=== PATIENT | male | born 1990 | race American Indian/Alaskan Native ===

== ENCOUNTER 2019-01-03 17:59 | Emergency (ER) | payer SELFPAY ==
--- NOTE | 2019-01-03 18:44 | Emergency Department Report ---
ED General Adult HPI - General Chief complaint: Overdose Stated complaint: ILLNESS Time Seen by Provider: 01/03/19 18:35 Source: patient, EMS Mode of arrival: Ambulatory Limitations: No Limitations - History of Present Illness Initial comments: 28 y.o. male with history of schizophrenia presents after stating that he ingested an unknown amount of Nyquil to go to sleep after using cocaine prior for the past couple of days. Patient states that he only wanted to go to sleep and denies SI. Patient denies HI or auditory hallucinations. Patient states that he had no other coingestants such as tylenol or salicylates. Patient denies chest pain or shortness of breath. - Related Data Allergies Allergy/AdvReac Type Severity Reaction Status Date / Time No Known Allergies Allergy Verified 01/03/19 18:18 ED Review of Systems ROS: Stated complaint: ILLNESS Other details as noted in HPI Constitutional: denies: chills, fever Eyes: denies: eye pain, eye discharge, vision change ENT: denies: ear pain, throat pain Respiratory: denies: cough, shortness of breath, wheezing Cardiovascular: denies: chest pain, palpitations Endocrine: no symptoms reported Gastrointestinal: denies: abdominal pain, nausea, diarrhea Genitourinary: denies: urgency, dysuria Musculoskeletal: denies: back pain, joint swelling, arthralgia Skin: denies: rash, lesions Neurological: denies: headache, weakness, paresthesias Psychiatric: denies: anxiety, depression Hematological/Lymphatic: denies: easy bleeding, easy bruising ED Past Medical Hx - Past Medical History Previous Medical History?: Yes Hx Psychiatric Treatment: Yes (aris) ED Physical Exam - General Limitations: No Limitations General appearance: alert, in no apparent distress - Head Head exam: Present: atraumatic, normocephalic - Eye Eye exam: Present: normal appearance - ENT ENT exam: Present: mucous membranes moist - Neck Neck exam: Present: normal inspection - Respiratory Respiratory exam: Present: normal lung sounds bilaterally. Absent: respiratory distress - Cardiovascular Cardiovascular Exam: Present: normal rhythm, tachycardia. Absent: systolic murmur, diastolic murmur, rubs, gallop - GI/Abdominal GI/Abdominal exam: Present: soft, normal bowel sounds - Rectal Rectal exam: Present: deferred - Extremities Exam Extremities exam: Present: normal inspection - Back Exam Back exam: Present: normal inspection - Neurological Exam Neurological exam: Present: alert, oriented X3 - Psychiatric Psychiatric exam: Present: anxious, flat affect. Absent: homicidal ideation, suicidal ideation - Skin Skin exam: Present: warm, dry, intact, normal color. Absent: rash ED Course Vital Signs 01/03/19 01/03/19 18:49 21:22 Pulse Rate 91 H Respiratory 18 16 Rate Blood Pressure 137/85 [Right] O2 Sat by Pulse 98 98 Oximetry ED Medical Decision Making - Lab Data Result diagrams: 01/03/19 18:58 01/03/19 21:28 - EKG Data EKG shows normal: sinus rhythm Rate: tachycardia - EKG Data When compared to previous EKG there are: no significant change - Medical Decision Making Case discussed with poison control who states to repeat tylenol level in four hours. Patient to receive NS bolus of IV fluids. Patient seen by [facility] and does not meet inpatient criteria. Patient to be discharged to follow-up with outpatient psychiatry as he does have follow-up with he receives his Invega shot. Patient HR has improved s/p receiving IV fluids. Patient currently pending a repeat tylenol level. - Differential Diagnosis rhabdomyolysis; dehydration; anemia; psychosis; Critical care attestation.: If time is entered above; I have spent that time in minutes in the direct care of this critically ill patient, excluding procedure time. ED Disposition Clinical Impression: Drug overdose, intentional, Cocaine abuse Disposition: DC-01 TO HOME OR SELFCARE Is pt being admited?: No Does the pt Need Aspirin: No Condition: Stable Instructions: Cocaine Abuse (ED) Time of Disposition: 20:34 Print Language: MALAY
[2019-01-03] MEDS ORDERED: NACL 0.9% 1000 ML 1,000 ML IV ONE (18:45)
[2019-01-03 19:17] LABS: Basophils % (Auto) 0.7 % (0.0-1.8); Eosinophils % (Auto) 0.7 % (0.0-4.3); Hematocrit 43.5 % (35.5-45.6); Hemoglobin 14.7 gm/dl (11.8-15.2); Lymphocytes # (Auto) 0.8 K/mm3 (1.2-5.4); Lymphocytes % (Auto) 14.2 % (13.4-35.0); Mean Corpuscular HGB Conc 34 % (32-34); Mean Corpuscular Volume 87 fl (84-94); Monocytes # (Auto) 0.4 K/mm3 (0.0-0.8); Monocytes % (Auto) 7.2 % (0.0-7.3); Platelet Count 261 K/mm3 (140-440); Red Blood Count 5.02 M/mm3 (3.65-5.03); Red Cell Distribution Width 14.3 % (13.2-15.2)
[2019-01-03 21:25] VITALS: BP 137/85
[2019-01-03 21:42] LABS: Alanine Aminotransferase 17 units/L (7-56); BUN/Creatinine Ratio 9; Blood Urea Nitrogen 8 mg/dL (9-20); Calcium 9.5 mg/dL (8.4-10.2); Hemolysis Index 32
[2019-01-03 21:58] LABS: Amphetamine Screen,Urine PRESUMPTIVE NEGATIVE; Benzodiazepines Screen,Urine PRESUMPTIVE NEGATIVE; Cannabinoid Screen,Urine PRESUMPTIVE NEGATIVE; Cocaine Screen,Urine PRESUMPTIVE NEGATIVE; Methadone Screen,Urine PRESUMPTIVE NEGATIVE; Opiate Screen,Urine PRESUMPTIVE NEGATIVE
== END 2019-01-03 23:00 | disposition home or self-care (01) ==
LOC: EDSEX → ED 17:59
DX: T40.5X2A Poisoning by cocaine, intentional self-harm, initial encounter (principal); F20.9 Schizophrenia, unspecified; Y92.89 Other specified places as the place of occurrence of the external cause
CPT/HCPCS: 36415; 80053; 80307; 82550; 84484; 85025; 93005; 93010; 99284; J7030; 80320; G0480

== ENCOUNTER 2019-01-10 12:56 | Emergency (ER) | payer MEDICAID ==
[2019-01-10] MEDS ORDERED: ASPIRIN PO ONE (13:14)
--- NOTE | 2019-01-10 13:21 | Event Note ---
ED Screening Note Date of service: 01/10/19 Time: 13:14 ED Screening Note: Patient here c/o cp left side of chest and feels like pressure. Ongoing for 1 hour. Took cocaine 2 days. Uses once every 2 weeks. Drinks 1 pint gin every other day. HX of HTN, increase chol and SCHIZOPhrenic. Denies visual or auditory hallucination. No suicide ideation. Seen by [facility] and on Meds. Came via ambulance and was here last week for similar problems but no follow up Mild TTP left chest Lungs Clear VSS, afeb This initial assessment/diagnostic orders/clinical plan/treatment(s) is/are subject to change based on patients health status, clinical progression and re- assessment by fellow clinical providers in the ED. Further treatment and workup at subsequent clinical providers discretion. Patient/guardian urged not to elope from the ED as their condition may be serious if not clinically assessed and managed. Initial orders include: CP protocol
[2019-01-10 13:53] LABS: Basophils % (Auto) 0.7 % (0.0-1.8); Eosinophils % (Auto) 0.6 % (0.0-4.3); Hematocrit 40.8 % (35.5-45.6); Hemoglobin 13.8 gm/dl (11.8-15.2); Lymphocytes # (Auto) 0.9 K/mm3 (1.2-5.4); Lymphocytes % (Auto) 16.5 % (13.4-35.0); Mean Corpuscular HGB Conc 34 % (32-34); Mean Corpuscular Volume 87 fl (84-94); Monocytes # (Auto) 0.5 K/mm3 (0.0-0.8); Monocytes % (Auto) 9.2 % (0.0-7.3); Platelet Count 290 K/mm3 (140-440); Red Blood Count 4.71 M/mm3 (3.65-5.03); Red Cell Distribution Width 14.4 % (13.2-15.2)
[2019-01-10 14:04] LABS: INR 0.9 (0.87-1.13); Partial Thromboplastin Time 25.4 Sec. (24.2-36.6)
[2019-01-10 14:08] LABS: Alanine Aminotransferase 13 units/L (7-56); BUN/Creatinine Ratio 10; Blood Urea Nitrogen 10 mg/dL (9-20); Calcium 9.9 mg/dL (8.4-10.2); Hemolysis Index 6
--- NOTE | 2019-01-10 14:09 | XRay Report ---
CHEST 2 VIEWS INDICATION: Chest Pain. Acute generalized chest pain COMPARISON: None FINDINGS: Support devices: None. Heart: Within normal limits. Lungs/pleura: No acute air space or interstitial disease. No pneumothorax. Additional findings: None. IMPRESSION: 1. No acute findings. Signer Name: Benigno Buck MD Signed: 01/10/2019 2:05 PM Workstation Name: [id number]
--- NOTE | 2019-01-10 14:13 | Emergency Department Report ---
<DAT DAMON - Last Filed: 01/10/19 17:16> ED Chest Pain HPI - General Chief Complaint: Chest Pain Stated Complaint: CHEST PAIN Time Seen by Provider: 01/10/19 13:12 Source: patient, EMS Mode of arrival: Ambulatory Limitations: No Limitations - History of Present Illness Initial Comments: 28-year-old -Dutch male patient with history of schizophrenia and hyperlipidemia presents today with complaints of chest pain prior to arrival. Denies any current pain. States the pain was left-sided and felt like a pressure. He states he feels anxious and the pressure in his chest feels like his normal anxiety. He does report history of anxiety attacks. He denies any recent heavy lifting or trauma to his chest, leg pain or swelling, recent long travel, shortness of breath, or history of SC/CVA/DVT/PE. He denies any family history of heart disease. He states compliance with his in [place] and fluoxetine MD Complaint: chest pain -: Sudden, minutes(s) Onset: during rest Pain Location: left chest Pain Radiation: none Severity scale (0 -10): 4 Quality: pressure Consistency: constant Worsens With: nothing Other Symptoms: denies: cough, syncope, leg swelling, palpitations - Related Data Allergies Allergy/AdvReac Type Severity Reaction Status Date / Time No Known Allergies Allergy Verified 01/03/19 18:18 Heart Score - HEART Score History: Slightly suspicious EKG: Normal Age: < 45 Risk factors: 1-2 risk factors Troponin: < normal limit HEART Score: 1 - Critical Actions Critical Actions: 0-3 pts:0.9-1.7%risk of adverse cardiac event.Candidate for discharge ED Past Medical Hx - Past Medical History Previous Medical History?: Yes Hx Hypertension: Yes Hx Psychiatric Treatment: Yes (aris) Additional medical history: Drug use - Surgical History Past Surgical History?: No - Social History Smoking Status: Current Every Day Smoker Substance Use Type: Alcohol, Cocaine, Marijuana, Other ED Physical Exam - General Limitations: No Limitations ED Medical Decision Making - Lab Data Result diagrams: 01/10/19 13:23 01/10/19 13:23 Lab Results 01/10/19 01/10/19 01/10/19 Range/Units 13:23 13:23 13:23 WBC 5.2 (4.5-11.0) K/mm3 RBC 4.71 (3.65-5.03) M/mm3 Hgb 13.8 (11.8-15.2) gm/dl Hct 40.8 (35.5-45.6) % MCV 87 (84-94) fl MCH 29 (28-32) pg MCHC 34 (32-34) % RDW 14.4 (13.2-15.2) % Plt Count 290 (140-440) K/mm3 Lymph % (Auto) 16.5 (13.4-35.0) % Day % (Auto) 9.2 H (0.0-7.3) % Eos % (Auto) 0.6 (0.0-4.3) % Baso % (Auto) 0.7 (0.0-1.8) % Lymph # 0.9 L (1.2-5.4) K/mm3 Day # 0.5 (0.0-0.8) K/mm3 Eos # 0.0 (0.0-0.4) K/mm3 Baso # 0.0 (0.0-0.1) K/mm3 Seg Neutrophils % 73.0 H (40.0-70.0) % Seg Neutrophils # 3.8 (1.8-7.7) K/mm3 PT 12.1 L (12.2-14.9) Sec. INR 0.90 (0.87-1.13) APTT 25.4 (24.2-36.6) Sec. Sodium 141 (137-145) mmol/L Potassium 4.8 (3.6-5.0) mmol/L Chloride 99.5 (98-107) mmol/L Carbon Dioxide 26 (22-30) mmol/L Anion Gap 20 mmol/L BUN 10 (9-20) mg/dL Creatinine 1.0 (0.8-1.5) mg/dL Estimated GFR > 60 ml/min BUN/Creatinine Ratio 10 % Glucose 91 (75-100) mg/dL Calcium 9.9 (8.4-10.2) mg/dL Total Bilirubin 0.40 (0.1-1.2) mg/dL AST 24 (5-40) units/L ALT 13 (7-56) units/L Alkaline Phosphatase 106 (35-129) units/L Total Creatine Kinase (55-170) units/L Troponin T < 0.010 (0.00-0.029) ng/mL Total Protein 8.3 H (6.3-8.2) g/dL Albumin 5.0 (3.9-5) g/dL Albumin/Globulin Ratio 1.5 % Urine Opiates Screen Urine Methadone Screen Ur Barbiturates Screen Ur Phencyclidine Scrn Ur Amphetamines Screen U Benzodiazepines Scrn Urine Cocaine Screen U Marijuana (THC) Screen Drugs of Abuse Note 01/10/19 01/10/19 Range/Units 13:23 13:34 WBC (4.5-11.0) K/mm3 RBC (3.65-5.03) M/mm3 Hgb (11.8-15.2) gm/dl Hct (35.5-45.6) % MCV (84-94) fl MCH (28-32) pg MCHC (32-34) % RDW (13.2-15.2) % Plt Count (140-440) K/mm3 Lymph % (Auto) (13.4-35.0) % Day % (Auto) (0.0-7.3) % Eos % (Auto) (0.0-4.3) % Baso % (Auto) (0.0-1.8) % Lymph # (1.2-5.4) K/mm3 Day # (0.0-0.8) K/mm3 Eos # (0.0-0.4) K/mm3 Baso # (0.0-0.1) K/mm3 Seg Neutrophils % (40.0-70.0) % Seg Neutrophils # (1.8-7.7) K/mm3 PT (12.2-14.9) Sec. INR (0.87-1.13) APTT (24.2-36.6) Sec. Sodium (137-145) mmol/L Potassium (3.6-5.0) mmol/L Chloride (98-107) mmol/L Carbon Dioxide (22-30) mmol/L Anion Gap mmol/L BUN (9-20) mg/dL Creatinine (0.8-1.5) mg/dL Estimated GFR ml/min BUN/Creatinine Ratio % Glucose (75-100) mg/dL Calcium (8.4-10.2) mg/dL Total Bilirubin (0.1-1.2) mg/dL AST (5-40) units/L ALT (7-56) units/L Alkaline Phosphatase (35-129) units/L Total Creatine Kinase 349 H (55-170) units/L Troponin T (0.00-0.029) ng/mL Total Protein (6.3-8.2) g/dL Albumin (3.9-5) g/dL Albumin/Globulin Ratio % Urine Opiates Screen Presumptive negative Urine Methadone Screen Presumptive negative Ur Barbiturates Screen Presumptive negative Ur Phencyclidine Scrn Presumptive negative Ur Amphetamines Screen Presumptive negative U Benzodiazepines Scrn Presumptive negative Urine Cocaine Screen Presumptive positive U Marijuana (THC) Screen Presumptive negative Drugs of Abuse Note Disclamer - EKG Data When compared to previous EKG there are: no significant change - Radiology Data Radiology results: report reviewed CHEST 2 VIEWS INDICATION: Chest Pain. Acute generalized chest pain COMPARISON: None FINDINGS: Support devices: None. Heart: Within normal limits. Lungs/pleura: No acute air space or interstitial disease. No pneumothorax. Additional findings: None. IMPRESSION: 1. No acute findings. - Medical Decision Making 28-year-old patient here with complaints of chest pain today. No current chest pain. No history of DVT/PE/SC/CVA. Patient states this feels like his normal anxiety. Perc score = 0. Heart score = 1. No acute findings on labs or chest x-ray today. Vitals WNL. Patient seen here 5 days ago for the same. Recommend follow-up with cardiology for further evaluation. Precautions were discussed in detail with patient who states understanding. ED Disposition Clinical Impression: Other chest pain Disposition: DC-01 TO HOME OR SELFCARE Is pt being admited?: No Condition: Stable Instructions: Chest Pain (ED) Referrals: NEREIDA ZULETA MD [Staff Physician] - 3-5 Days <SHIRA DEL CID P - Last Filed: 01/11/19 22:55> ED Review of Systems ROS: Stated complaint: CHEST PAIN Other details as noted in HPI ED Course Vital Signs 01/10/19 01/10/19 01/10/19 13:04 14:08 16:15 Temperature 98.1 F Pulse Rate 99 H 98 H 84 Respiratory 18 14 17 Rate Blood Pressure 131/81 Blood Pressure 114/68 107/60 [Left] O2 Sat by Pulse 98 98 99 Oximetry ED Medical Decision Making - Lab Data Result diagrams: 01/10/19 13:23 01/10/19 13:23 - Medical Decision Making Attestation: Available for consultation Critical care attestation.: If time is entered above; I have spent that time in minutes in the direct care of this critically ill patient, excluding procedure time. ED Disposition Is pt being admited?: No
[2019-01-10 14:31] LABS: Amphetamine Screen,Urine PRESUMPTIVE NEGATIVE; Benzodiazepines Screen,Urine PRESUMPTIVE NEGATIVE; Cannabinoid Screen,Urine PRESUMPTIVE NEGATIVE; Methadone Screen,Urine PRESUMPTIVE NEGATIVE; Opiate Screen,Urine PRESUMPTIVE NEGATIVE
[2019-01-10 14:48] LABS: Cocaine Screen,Urine PRESUMPTIVE POSITIVE
[2019-01-10] MEDS ORDERED: NACL 0.9% 1000 ML 1,000 ML IV ONE (15:37)
[2019-01-10 16:16] VITALS: BP 107/60
== END 2019-01-10 17:37 | disposition home or self-care (01) ==
LOC: ED 12:56
DX: R07.89 Other chest pain (principal); I10 Essential (primary) hypertension; F20.9 Schizophrenia, unspecified; F17.200 Nicotine dependence, unspecified, uncomplicated; F12.10 Cannabis abuse, uncomplicated
CPT/HCPCS: 36415; 71046; 80053; 80307; 82550; 84484; 85025; 85610; 85730; 93005; 93010; 99284; J7030

== ENCOUNTER 2019-02-08 10:51 | Emergency (ER) | payer MEDICAID ==
--- NOTE | 2019-02-08 12:03 | XRay Report ---
CHEST 1 VIEW 02/08/2019 11:35 AM INDICATION / CLINICAL INFORMATION: Chest Pain. Left upper chest wall pain. Anxiety. COMPARISON: 2 views of the chest from 01/10/2019. FINDINGS: SUPPORT DEVICES: None. HEART / MEDIASTINUM: No significant abnormality. LUNGS / PLEURA: There is mild biapical scarring. The lungs are otherwise clear. No significant pleura l effusion. No pneumothorax. ADDITIONAL FINDINGS: No significant additional findings. IMPRESSION: 1. No acute abnormality of the chest. Signer Name: Rogelio Chacon MD Signed: 02/08/2019 11:58 AM Workstation Name: [id number]
[2019-02-08 12:47] LABS: Hematocrit 39.7 % (35.5-45.6); Hemoglobin 13.2 gm/dl (11.8-15.2); Mean Corpuscular HGB Conc 33 % (32-34); Mean Corpuscular Volume 87 fl (84-94); Platelet Count 204 K/mm3 (140-440); Red Blood Count 4.57 M/mm3 (3.65-5.03); Red Cell Distribution Width 14.5 % (13.2-15.2)
--- NOTE | 2019-02-08 13:08 | Emergency Department Report ---
ED Chest Pain HPI - General Chief Complaint: Chest Pain Stated Complaint: CHEST PAIN Time Seen by Provider: 02/08/19 13:05 Source: patient Mode of arrival: Ambulatory Limitations: No Limitations - History of Present Illness Initial Comments: 28-year-old -Polish male with a past medical history of schizophrenia, hypertension, cholesterolemia presents to the emergency room for upper chest wall pain, anxiety and facial swelling the left hand tightness. Patient denies any shortness of breath or difficulty swallowing. It was noted the patient was here on 1026 for chest pain referred to dental appliance repairer and had a stress test on 1121 within normal limits. It was reviewed the patient has a history of cocaine abuse but states he has been in rehabilitation for the last 2 weeks and currently has been out. Patient reports that his chest pain has been on and off since December. Patient states when he has chest pain he feels very anxious and nervous. Patient states he started taking an aspirin daily but does not seem to help with this pain. Patient reports is currently taking Zoloft for his anxiety hypertensive medication and a cholesterol medication. Patient denies any pain at this moment. MD Complaint: chest pain -: This afternoon Onset: during rest Pain Location: left chest (upper) Pain Radiation: none Severity scale (0 -10): 5 Quality: sharp Consistency: intermittent Improves With: nothing Worsens With: nothing re: denies: nausea, vomting, diaphoresis, dyspnea, sense of impending doom Other Symptoms: denies: cough, fever, syncope, rash, acid taste in mouth, leg swelling, palpitations, burping Treatments Prior to Arrival: none - Related Data Allergies Allergy/AdvReac Type Severity Reaction Status Date / Time No Known Allergies Allergy Verified 01/03/19 18:18 Heart Score - HEART Score History: Slightly suspicious EKG: Normal Age: < 45 Risk factors: 1-2 risk factors Troponin: 1-3x normal limit HEART Score: 2 ED Review of Systems ROS: Stated complaint: CHEST PAIN Other details as noted in HPI Comment: All other systems reviewed and negative ED Past Medical Hx - Past Medical History Hx Hypertension: Yes Hx Psychiatric Treatment: Yes (aris) Additional medical history: Drug use - Social History Smoking Status: Current Every Day Smoker Substance Use Type: Alcohol ED Physical Exam - General Limitations: No Limitations General appearance: alert, in no apparent distress - Head Head exam: Present: atraumatic, normocephalic - Eye Eye exam: Present: normal appearance - ENT ENT exam: Present: mucous membranes moist - Neck Neck exam: Present: normal inspection - Respiratory Respiratory exam: Present: normal lung sounds bilaterally. Absent: respiratory distress - Cardiovascular Cardiovascular Exam: Present: regular rate, normal rhythm. Absent: systolic murmur, diastolic murmur, rubs, gallop - GI/Abdominal GI/Abdominal exam: Present: soft, normal bowel sounds - Rectal Rectal exam: Present: deferred - Extremities Exam Extremities exam: Present: normal inspection - Back Exam Back exam: Present: normal inspection - Neurological Exam Neurological exam: Present: alert, oriented X3 - Psychiatric Psychiatric exam: Present: normal affect, normal mood - Skin Skin exam: Present: warm, dry, intact, normal color. Absent: rash ED Course Vital Signs 02/08/19 02/08/19 11:01 15:17 Temperature 98.2 F 97.9 F Pulse Rate 103 H 80 Respiratory 18 18 Rate Blood Pressure 166/88 Blood Pressure 138/87 [Right] O2 Sat by Pulse 100 99 Oximetry CRISTÓBAL score - Cristóbal Score Age > 65: (0) No Aspirin use within the Past 7 Days: (1) Yes 3 or more CAD Risk Factors: (0) No 2 or more Angina events in past 24 hrs: (0) No Known CAD with more than 50% Stenosis: (0) No Elevated Cardiac Markers: (0) No ST Deviation Greater than 0.5mm: (0) No CRISTÓBAL Score: 1 ED Medical Decision Making - Lab Data Result diagrams: 02/08/19 12:19 02/08/19 14:08 - Radiology Data Radiology results: report reviewed Patient: THOMPSON BALDWIN MR#: [id number] 21 : 1990 Acct:[id number] Age/Sex: 28 / M ADM Date: 02/08/19 Loc: ED Attending Dr: Ordering Physician: SALVATORE FLOWER MD Date of Service: 02/08/19 Procedure(s): XR chest 1V ap Accession Number(s): [id number] cc: ED MD MUNDO Fluoro Time In Minutes: CHEST 1 VIEW 02/08/2019 11:35 AM INDICATION / CLINICAL INFORMATION: Chest Pain. Left upper chest wall pain. Anxiety. COMPARISON: 2 views of the chest from 01/10/2019. FINDINGS: SUPPORT DEVICES: None. HEART / MEDIASTINUM: No significant abnormality. LUNGS / PLEURA: There is mild biapical scarring. The lungs are otherwise clear. No significant pleural effusion. No pneumothorax. ADDITIONAL FINDINGS: No significant additional findings. IMPRESSION: 1. No acute abnormality of the chest. Signer Name: Rogelio Chacon MD Signed: 02/08/2019 11:58 AM Workstation Name: [id number] Transcribed By: [place] Dictated By: Rogelio Chcaon MD Electronically Authenticated By: Rogelio Chacon MD Signed Date/Time: 02/08/191157 DD/ 57 TD/TT: - Medical Decision Making 28-year-old -Polish male with a past medical history of schizophrenia, hypertension, cholesterolemia presents to the emergency room for upper chest wall pain, anxiety and facial swelling the left hand tightness. Patient denies any shortness of breath or difficulty swallowing. It was noted the patient was here on 1026 for chest pain referred to dental appliance repairer and had a stress test on 1120 within normal limits. It was reviewed the patient has a history of cocaine abuse but states he has been in rehabilitation for the last 2 weeks and currently has been out. Patient reports that his chest pain has been on and off since December. Patient states when he has chest pain he feels very anxious and nervous. Patient states he started taking an aspirin daily but does not seem to help with this pain. Patient reports is currently taking Zoloft for his anxiety hypertensive medication and a cholesterol medication. Patient denies any pain at this moment. Patient has a heart score of 2, and a CRISTÓBAL score of 0. Patient's had a recent stress test in 1120 within normal limits. Patient has 2 negative troponins. Patient does test positive for barbiturates. Patient's encouraged to continue with his anxiety medication and to follow up with his primary care provider and dental appliance repairer. Critical care attestation.: If time is entered above; I have spent that time in minutes in the direct care of this critically ill patient, excluding procedure time. ED Disposition Clinical Impression: Atypical chest pain, Barbiturate abuse Disposition: DC-01 TO HOME OR SELFCARE Is pt being admited?: No Does the pt Need Aspirin: No Condition: Stable Instructions: Chest Pain (ED) Referrals: [facility] [Outside] - 3-5 Days
[2019-02-08 13:54] LABS: Amphetamine Screen,Urine PRESUMPTIVE NEGATIVE; Benzodiazepines Screen,Urine PRESUMPTIVE NEGATIVE; Cannabinoid Screen,Urine PRESUMPTIVE NEGATIVE; Cocaine Screen,Urine PRESUMPTIVE NEGATIVE; Methadone Screen,Urine PRESUMPTIVE NEGATIVE; Opiate Screen,Urine PRESUMPTIVE NEGATIVE
[2019-02-08 14:29] LABS: Alanine Aminotransferase 18 units/L (7-56); Albumin 4.7 g/dL (3.9-5); BUN/Creatinine Ratio 11; Blood Urea Nitrogen 8 mg/dL (9-20); Calcium 9.7 mg/dL (8.4-10.2); Hemolysis Index 3
[2019-02-08 14:37] LABS: Alanine Aminotransferase 17 units/L (7-56); Albumin 4.3 g/dL (3.9-5); BUN/Creatinine Ratio 12; Blood Urea Nitrogen 7 mg/dL (9-20); Calcium 9.4 mg/dL (8.4-10.2); Hemolysis Index 5
[2019-02-08 15:18] VITALS: BP 138/87
== END 2019-02-08 15:30 | disposition home or self-care (01) ==
LOC: ED 10:51
DX: F07.89 Other personality and behavioral disorders due to known physiological condition (principal); F13.10 Sedative, hypnotic or anxiolytic abuse, uncomplicated; I10 Essential (primary) hypertension; F20.0 Paranoid schizophrenia; F17.200 Nicotine dependence, unspecified, uncomplicated
CPT/HCPCS: 36415; 71045; 80053; 80307; 84484; 85027; 93005; 93010

== ENCOUNTER 2019-04-23 23:57 | Emergency (ER) | payer MEDICAID ==
[2019-04-24 00:34] LABS: Basophils % (Auto) 0.5 % (0.0-1.8); Eosinophils # (Auto) 0.1 K/mm3 (0.0-0.4); Eosinophils % (Auto) 2.3 % (0.0-4.3); Hemoglobin 11.7 gm/dl (11.8-15.2); Lymphocytes # (Auto) 1.6 K/mm3 (1.2-5.4); Lymphocytes % (Auto) 34.3 % (13.4-35.0); Mean Corpuscular HGB Conc 33 % (32-34); Mean Corpuscular Volume 88 fl (84-94); Monocytes # (Auto) 0.3 K/mm3 (0.0-0.8); Monocytes % (Auto) 7.3 % (0.0-7.3); Platelet Count 212 K/mm3 (140-440); Red Cell Distribution Width 14.5 % (13.2-15.2)
[2019-04-24 00:54] LABS: BUN/Creatinine Ratio 13; Blood Urea Nitrogen 10 mg/dL (9-20); Hemolysis Index 3
--- NOTE | 2019-04-24 01:22 | Emergency Department Report ---
- General Chief complaint: Weakness Stated complaint: WEAKNESS Time Seen by Provider: 04/24/19 01:11 Source: patient, EMS Mode of arrival: Ambulatory Limitations: No Limitations - History of Present Illness Initial comments: Mr. Jones is a 29-year-old male history of hypertension and schizophrenia who presents with generalized weakness for 2 weeks. He is tried to treat this weakness with a vitamin [id number]. He denies any recent drug use because he is "scared" to use drugs. He denies any pain. He is followed at [facility]. He has been compliant with all his medications. MD Complaint: generalized weakness -: Gradual, week(s) (2) Location: generalized Severity: mild Consistency: constant Improves with: none Worsens with: none Associated Symptoms: denies other symptoms - Related Data Previous Rx's Medication Instructions Recorded Last Taken Type Multivitamin [One Daily 1 each PO DAILY 90 Days #90 tablet 04/24/19 Unknown Rx Multivitamin] Allergies Allergy/AdvReac Type Severity Reaction Status Date / Time No Known Allergies Allergy Verified 01/03/19 18:18 ED Review of Systems ROS: Stated complaint: WEAKNESS Other details as noted in HPI Comment: All other systems reviewed and negative Constitutional: malaise. denies: chills, fever Respiratory: denies: cough Cardiovascular: denies: chest pain, palpitations Gastrointestinal: denies: abdominal pain, nausea, vomiting ED Past Medical Hx - Past Medical History Previous Medical History?: Yes Hx Hypertension: Yes Hx Psychiatric Treatment: Yes (mollyernia) Additional medical history: Drug use - Surgical History Past Surgical History?: No - Social History Smoking Status: Current Every Day Smoker Substance Use Type: None - Medications Home Medications: Home Medications Medication Instructions Recorded Confirmed Last Taken Type Multivitamin [One Daily 1 each PO DAILY 90 Days #90 tablet 04/24/19 Unknown Rx Multivitamin] ED Physical Exam - General Limitations: No Limitations General appearance: alert, in no apparent distress - Head Head exam: Present: atraumatic, normocephalic - Eye Eye exam: Present: normal appearance - ENT ENT exam: Present: mucous membranes moist - Neck Neck exam: Present: normal inspection, full ROM - Respiratory Respiratory exam: Present: normal lung sounds bilaterally. Absent: respiratory distress, wheezes, rales, rhonchi - Cardiovascular Cardiovascular Exam: Present: regular rate, normal rhythm, normal heart sounds. Absent: systolic murmur, diastolic murmur, rubs, gallop - GI/Abdominal GI/Abdominal exam: Present: soft, normal bowel sounds. Absent: distended, tenderness, guarding, rebound - Rectal Rectal exam: Present: deferred - Extremities Exam Extremities exam: Present: normal inspection - Neurological Exam Neurological exam: Present: alert, oriented X3 - Psychiatric Psychiatric exam: Present: normal affect, normal mood - Skin Skin exam: Present: warm, dry, intact, normal color. Absent: rash ED Course Vital Signs 04/24/19 00:04 Temperature 97.8 F Pulse Rate 71 Respiratory 20 Rate Blood Pressure 117/77 O2 Sat by Pulse 98 Oximetry ED Medical Decision Making - Lab Data Result diagrams: 04/24/19 00:18 04/24/19 00:18 Laboratory Results - last 24 hr 04/24/19 04/24/19 00:18 00:18 WBC 4.6 RBC 4.00 Hgb 11.7 L Hct 35.0 L MCV 88 MCH 29 MCHC 33 RDW 14.5 Plt Count 212 Lymph % (Auto) 34.3 [place] % (Auto) 7.3 Eos % (Auto) 2.3 Baso % (Auto) 0.5 Lymph # 1.6 [place] # 0.3 Eos # 0.1 Baso # 0.0 Seg Neutrophils % 55.6 Seg Neutrophils # 2.6 Sodium 140 Potassium 4.1 Chloride 103.8 Carbon Dioxide 24 Anion Gap 16 BUN 10 Creatinine 0.8 Estimated GFR > 60 BUN/Creatinine Ratio 13 Glucose 94 Calcium 9.0 - Medical Decision Making Generalized weakness CBC chemistry was normal limits. No indication of infection. Recommended rest and hydration. Denies any suicidal homicidal ideation. Denies any auditory hallucination. I have prescribed a multivitamin. Critical care attestation.: If time is entered above; I have spent that time in minutes in the direct care of this critically ill patient, excluding procedure time. ED Disposition Clinical Impression: Generalized weakness Disposition: DC-01 TO HOME OR SELFCARE Is pt being admited?: No Does the pt Need Aspirin: No Condition: Stable Instructions: Weakness (ED) Prescriptions: Multivitamin [One Daily Multivitamin] 1 each PO DAILY 90 Days #90 tablet Referrals: DHRUV DELAROSA MD [Staff Physician] - as needed
[2019-04-24 01:44] VITALS: BP 114/63
== END 2019-04-24 01:30 | disposition home or self-care (01) ==
LOC: ED 23:57
DX: R53.1 Weakness (principal); I10 Essential (primary) hypertension; F20.9 Schizophrenia, unspecified; F17.200 Nicotine dependence, unspecified, uncomplicated; Z79.899 Other long term (current) drug therapy
CPT/HCPCS: 36415; 80048; 85025

== ENCOUNTER 2019-07-24 22:58 | Emergency (ER) | payer MEDICAID ==
[2019-07-24 23:30] LABS: Basophils % (Auto) 0.7 % (0.0-1.8); Eosinophils % (Auto) 0.1 % (0.0-4.3); Hematocrit 41.6 % (35.5-45.6); Hemoglobin 13.9 gm/dl (11.8-15.2); Lymphocytes # (Auto) 0.9 K/mm3 (1.2-5.4); Lymphocytes % (Auto) 18.9 % (13.4-35.0); Mean Corpuscular HGB Conc 34 % (32-34); Mean Corpuscular Volume 88 fl (84-94); Monocytes # (Auto) 0.2 K/mm3 (0.0-0.8); Monocytes % (Auto) 5.1 % (0.0-7.3); Platelet Count 311 K/mm3 (140-440); Red Blood Count 4.75 M/mm3 (3.65-5.03); Red Cell Distribution Width 14.1 % (13.2-15.2)
[2019-07-24 23:49] LABS: Alanine Aminotransferase 13 units/L (7-56); Albumin 4.8 g/dL (3.9-5); BUN/Creatinine Ratio 17; Blood Urea Nitrogen 15 mg/dL (9-20); Calcium 9.5 mg/dL (8.4-10.2); Hemolysis Index 4
[2019-07-25 00:28] LABS: Bacteria,Urine 1+ /HPF (Negative); Bilirubin,Urine NEG (Negative); Blood,Urine NEG (Negative); Color,Urine Yellow (Yellow); Mucus,Urine 1+ /HPF
== END 2019-07-25 05:05 | disposition left against medical advice (07) ==
LOC: ED 22:58
DX: R10.9 Unspecified abdominal pain (principal); Z53.21 Procedure and treatment not carried out due to patient leaving prior to being seen by health care provider
CPT/HCPCS: 36415; 80053; 81001; 85025